=== PATIENT | female | born 1950 ===

== ENCOUNTER 2022-06-23 17:07 | Emergency (ER) | payer MEDICARE, BC ==
[2022-06-23] MEDS ORDERED: Acetaminophen 325 MG Tab PO ONE (17:22)
[2022-06-23] MEDS ORDERED: Ibuprofen 400 MG Tab PO ONE (17:22)
[2022-06-23] MEDS ORDERED: oxyCODONE 5 MG Tab PO ONE (18:03)
== END 2022-06-23 20:03 | disposition home or self-care (01) ==
LOC: MW.ED 17:07
DX: S42.252A Displaced fracture of greater tuberosity of left humerus, initial encounter for closed fracture (principal); W10.9XXA Fall (on) (from) unspecified stairs and steps, initial encounter
CPT/HCPCS: 70450; 72125; 73030; 99284; A9270